=== PATIENT | female | born 1985 | race Caucasian/White ===

== ENCOUNTER 2019-05-24 16:10 | Outpatient (CLI) | payer OTHER, SELFPAY ==
--- NOTE | ~2019-05-24 | US_ITS ---
EXAMINATION: US venous doppler [facility] DATE: 05/24/2019 16:40 INDICATION: Left lower limb pain and swelling. TECHNIQUE: Grayscale ultrasound images without and with compression and Doppler ultrasound images of the left lower extremity veins were obtained. COMPARISON: None. FINDINGS: The visualized portions of left common femoral vein, profunda (deep) femoral vein, femoral vein, popl iteal vein, peroneal veins, posterior tibial veins, and greater saphenous vein outflow are patent. In the medial calf, there is a 5.6 x 0.9 cm cystic mass. IMPRESSION: 1. No deep venous thrombosis. 2. 5.6 x 0.9 cm cystic mass in medial left calf, likely a hematoma. Reviewed, dictated and finalized at location A. [employer]
== END 2019-05-24 16:11 | disposition home or self-care (01) ==
PROVIDERS: PCP Internal Medicine; Visit Provider Internal Medicine
DX: S89.92XA Unspecified injury of left lower leg, initial encounter (principal); M79.89 Other specified soft tissue disorders; M79.662 Pain in left lower leg
CPT/HCPCS: 93971

== ENCOUNTER 2022-03-23 10:17 | Outpatient (CLI) | payer OTHER, SELFPAY ==
[2022-03-23 11:19] LABS: Influenza A QL RT-PCR Positive (Negative); Influenza B QL RT-PCR Negative (Negative); RSV RNA, RT-PCR Negative (Negative); SARS-CoV-2 RNA PCR Negative (Negative)
== END 2022-03-23 10:18 | disposition home or self-care (01) ==
LOC: CHSLAB 10:21
PROVIDERS: PCP Internal Medicine; Visit Provider Internal Medicine
DX: R05.9 Cough, unspecified (principal); Z20.822 Contact with and (suspected) exposure to COVID-19
CPT/HCPCS: 87637

== ENCOUNTER 2022-09-29 22:57 | Emergency (ER) | payer OTHER, SELFPAY ==
--- NOTE | ~2022-09-29 | CT_ITS ---
Clinical Indication: Chest pain CT Scan of the Chest with Contrast: Technique: Contiguous sections were acquired throughout the chest after intravenous administration of 100 cc of Omnipaque 350. Dose reduction technique was used on this scan by utilizing automated expos ure control and iterative reconstruction technique. The dose-length product (DLP) was 317.11 mGy-cm. Findings: There is no evidence of any significant mediastinal, hilar or axillary lymphadenopathy. There is no f illing defect in the pulmonary arterial tree to suggest pulmonary embolus. There is no evidence of ao rtic dissection or aneurysm. There is no evidence of pleural or pericardial effusion. The lungs are clear. No pulmonary nodules or infiltrates are noted. Images through the upper abdomen reveal no abnormalities. Impression: No evidence of pulmonary embolus, aortic dissection, or aortic aneurysm. Clear lungs. Reviewed, dictated and finalized at [facility]. Impression: No evidence of pulmonary embolus, aortic dissection, or aortic aneurysm. Clear lungs.
--- NOTE | ~2022-09-29 | XR_ITS ---
Portable chest x-ray Comparison: 11/03/2017 Clinical History: Chest pain Findings: Lungs are clear, without focal consolidation or pleural effusion. Cardiomediastinal silho uette is stable. Bones and soft tissues are unremarkable. Impression: Normal chest. Reviewed, dictated and finalized at location . Impression: Normal chest.
[2022-09-29 23:02] VITALS: BP 126/95; PULSE 66; RESP 15; TEMP 37.1; O2SAT 100
--- NOTE | 2022-09-29 23:08 | ECG_ITS ---
Measurements Intervals [place] Rate: 55 P: 64 OR: 164 QRS: 59 QRSD: 93 T: 38 QT: 432 QTc: 415 Interpretive Statements SINUS BRADYCARDIA NO PREVIOUS ECG AVAILABLE FOR COMPARISON Electronically Signed On 09-30-2022 13:43:54 CDT by Nikki Becker M.D.
--- NOTE | 2022-09-29 23:09 | ED.CHESTPAIN ---
HPI - Chest Pain General Chief Complaint: Chest Pain Stated Complaint: Chest Pain Time Seen by Provider: 09/29/22 23:07 History of Present Illness HPI narrative: Pt presents with left sided chest pain radiating down her left arm for about 5.5 hrs constantly. Pt denies precipitating or relieving factors. Pt denies SOB. Pt denies any injury or new activity where she may have pulled something. Pt had some numbness in the left side of her face that lasted about two hrs. Related Data Home Medications Medication Instructions Recorded Confirmed No Home Medications 09/29/22 09/29/22 Allergies Allergy/AdvReac Type Severity Reaction Status Date / Time No Known Allergies Allergy Unverified 04/12/16 14:30 Review of Systems Review of Systems: All systems reviewed & are unremarkable except as noted in HPI and below PMFSH Family History Family History (Updated 07/15/16 @ 09:48 by DOCTOR UNKNOWN) Mother Family history of cardiac disorder Father Family history of lung cancer Sibling Family history of malignant neoplasm of thyroid Other Family history of malignant neoplasm Social History Social History Smoking status: Never smoker Alcohol intake: current Exam Const: General: healthy appearing Nutritional Appearance: well nourished Orientation/consciousness: patient oriented x3 Limitations: no limitations Eyes: Conjunctivae: conjunctivae normal Pupils: Equal, round and reactive pupils present EOM: EOMs intact bilaterally Neck: Neck: normal visual inspection and no lymphadenopathy Chest: Chest palpation & inspection: normal inspection of the chest Resp: Effort & Inspection: normal respiratory effort Auscultation: clear to auscultation bilaterally Cardio: Rate: regular rate Rhythm: regular rhythm GI: GI Palp: Yes Soft to palpation Auscultation: normal bowel sounds Skin: General skin exam: normal color Neuro: General: patient oriented x3, moves all extremities, no meningeal signs, no focal motor deficits and CN's II-XI intact bilaterally Cranial nerves: Yes Nystagmus not present Speech: normal speech Gait exam (Neuro): Normal gait present Extrem: General: normal to inspection and no clubbing, cyanosis or edema Psych: Mental Status: mental status grossly normal Affect: normal affect Attitude: cooperative Course Vital Signs Vital signs: Vital Signs Temperature 98.7 F 09/29/22 23:02 Pulse Rate 66 09/29/22 23:02 Respiratory Rate 15 09/29/22 23:02 Blood Pressure 126/95 H 09/29/22 23:02 Pulse Oximetry 100 09/29/22 23:02 Oxygen Delivery Room Air 09/29/22 23:02 Temperature 98.7 F 09/29/22 23:02 Pulse Rate 66 09/29/22 23:02 Respiratory Rate 15 09/29/22 23:02 Blood Pressure 126/95 H 09/29/22 23:02 Pulse Oximetry 100 09/29/22 23:02 Oxygen Delivery Room Air 09/29/22 23:02 MDM - Chest Pain MDM Narrative Medical decision making narrative: likey musculoskeletal as pt has no risk factors for CAD but with neuro sx could be dissection so will get ekg labs and Ct chest. ekg trop labs and CTA chest all normal.likely muscular. ok to go home on nsaids and follow up with pcp Lab Data 09/29/22 23:18 09/29/22 23:18 Labs: Lab Results 09/29/22 Range/Units 23:18 WBC 8.4 (4.8-10.8) K/mm3 RBC 4.05 L (4.20-5.40) M/mm3 Hgb 12.8 (12.0-15.0) g/dL Hct 38.4 (35.0-49.0) % MCV 94.8 (78.0-102.0) fL MCH 31.6 H (27.0-31.0) pg MCHC 33.3 (32.0-36.0) g/dL RDW 13.1 (11.6-14.4) % Plt Count 219 (150-420) K/mm3 MPV 9.0 L (9.2-11.8) fl Immature Gran % (Auto) 0.4 H (0.0-0.0) % Neut % (Auto) 45.9 L (50.0-70.0) % Lymph % (Auto) 43.9 H (18.0-42.0) % [place] % (Auto) 6.9 (2.0-11.0) % Eos % (Auto) 2.5 (1.0-6.0) % Baso % (Auto) 0.4 (0.0-1.0) % Lymph # (Auto) 3.69 (1.10-4.50) K/mm3 [place] # (Auto) 0.58 (0.10-0.90) K/mm3 Eos # (Auto) 0.21 (0.02-0.50) K/mm3 Baso # (Auto) 0.03 (0.00-0.
[2022-09-29] MEDS: MORPHINE SULFATE (*CRX) 4 MG/ML INJ IV PUSH (23:20)
[2022-09-29] MEDS: ONDANSETRON INJ 4 MG/2 ML VIAL IV PUSH (23:20)
[2022-09-29 23:21] LABS: Basophils Absolute Auto 0.03 K/mm3 (0.00-0.10); Basophils Percent Auto 0.4 % (0.0-1.0); Eosinophils Absolute Auto 0.21 K/mm3 (0.02-0.50); Eosinophils Percent Auto 2.5 % (1.0-6.0); Hematocrit 38.4 % (35.0-49.0); Hemoglobin 12.8 g/dL (12.0-15.0); Immature Granulocyte Absolute 0.03 K/mm3 (0.00-0.00); Immature Granulocyte Percent A 0.4 % (0.0-0.0); Lymphocytes Absolute Auto 3.69 K/mm3 (1.10-4.50); Lymphocytes Percent Auto 43.9 % (18.0-42.0); Mean Corpuscular HGB Conc 33.3 g/dL (32.0-36.0); Mean Corpuscular Hemoglobin 31.6 pg (27.0-31.0); Mean Corpuscular Volume 94.8 fL (78.0-102.0); Monocytes Absolute Auto 0.58 K/mm3 (0.10-0.90); Monocytes Percent Auto 6.9 % (2.0-11.0); Neutrophils Absolute Auto 3.9 K/mm3 (1.7-7.2); Neutrophils Percent Auto 45.9 % (50.0-70.0); Platelet Count Result 219 K/mm3 (150-420); Red Blood Count 4.05 M/mm3 (4.20-5.40); Red Cell Distribution Width 13.1 % (11.6-14.4); White Blood Count 8.4 K/mm3 (4.8-10.8)
[2022-09-29] MEDS: ASPIRIN 81 MG CHEWABLE TABLET 243 MG PO (23:22)
[2022-09-29 23:32] LABS: SPREG INTERNAL CONTROL Positive; Serum Qual hCG Negative
[2022-09-29 23:35] LABS: Partial Thromboplastin Time 26.1 SEC (23.90-30.70); Prothrombin Time 10.7 Seconds (9.50-12.10)
[2022-09-29 23:40] LABS: Alanine Aminotransferase 27 U/L (14-59); Albumin Level 3.6 g/dL (3.4-5.0); Alkaline Phosphatase 58 U/L (46-116); Anion Gap 8 mmol/L (8-16); Aspartate Amino Transferase 20 U/L (15-37); Bilirubin,Total 0.3 mg/dL (0.00-1.00); Blood Urea Nitrogen 19 mg/dL (7-18); Calcium 8.7 mg/dL (8.5-10.1); Carbon Dioxide 27 mmol/L (21-32); Chloride 103 mmol/L (98-108); Estimated CRCL calculation 70 ml/min; Estimated Glomerular Filt Rate > 60; Glucose 92 mg/dL (70-99); Osmolality Calculated 288 mOsm/kg (285-295); Potassium 3.6 mmol/L (3.5-5.1); Sodium 138 mmol/L (136-145); Total Protein 7.1 g/dL (6.4-8.2); Troponin I 6.9 ng/L (0.00-60.4)
[2022-09-30 01:00] VITALS: BP 107/77; PULSE 62; RESP 14; TEMP 37; O2SAT 97
== END 2022-09-30 01:02 | disposition home or self-care (01) ==
LOC: CHSED 09-30 00:49
PROVIDERS: Emergency Provider Emergency Medicine; PCP Internal Medicine
DX: R07.89 Other chest pain (principal)
CPT/HCPCS: 36415; 71045; 71275; 80053; 84484; 84703; 85025; 85610; 85730; 93005; 96374; 96375; 99284; A9270; J2270; J2405; Q9967

== ENCOUNTER 2023-11-08 14:42 | Outpatient (CLI) | payer OTHER, SELFPAY | END 2023-11-08 14:43 | disposition home or self-care (01) | PROVIDERS: PCP Internal Medicine; Visit Provider Specialist | DX: D22.5 Melanocytic nevi of trunk (principal) | CPT/HCPCS: 88305 ==

== ENCOUNTER 2024-03-01 16:40 | Outpatient (CLI) | payer OTHER, SELFPAY ==
--- NOTE | ~2024-03-01 | CT_ITS ---
EXAMINATION: CT soft tissue neck w con DATE: 03/01/2024 17:50 INDICATION: Peritonsillar abscess. TECHNIQUE: Computed tomography (CT) of the neck was performed with 75 mL Omnipaque-350 intravenous co ntrast. Automated exposure control and iterative reconstruction technique were employed. The dose-anthony gth product was 438.18 mGy-cm. COMPARISON: None FINDINGS: The pharynx and larynx are unremarkable. There are no pathologically enlarged lymph nodes. The cervical carotid arteries are normal. There is mild cervical spondylosis. IMPRESSION: 1. No abscess. Reviewed, dictated and finalized at location A. R SCRUBBER IMPRESSION: 1. No abscess.
== END 2024-03-01 16:41 | disposition home or self-care (01) ==
PROVIDERS: PCP Internal Medicine; Visit Provider Internal Medicine
DX: R07.0 Pain in throat (principal)
CPT/HCPCS: 70491; Q9967

== ENCOUNTER 2024-03-19 15:22 | Emergency (ER) | payer OTHER, SELFPAY ==
[2024-03-19 15:22] VITALS: BP 154/103; PULSE 91; RESP 16; TEMP 37.2; O2SAT 97
[2024-03-19 15:25] VITALS: O2SAT 98
--- NOTE | 2024-03-19 15:32 | ED_ITS ---
HPI - General Adult General Chief complaint: Upper Respiratory Infection Stated complaint: sore throat Time Seen by Provider: 03/19/24 15:31 Source: patient Mode of arrival: ambulatory Limitations: no limitations History of Present Illness HPI narrative: 38 years old white female came to the ED by private car with her complaining of intermittent left side sore throat, sharp, stabbing since December 20 2023. Patient tested positive at that time for strep throat and got better after a course of antibiotic, symptoms back again, tested negative for viral infection and strep throat but was given 10 days a course of antibiotic with significant improvement during the antibiotic intake and symptom came back immediately after the antibiotic over. Patient had another 2 courses of antibiotic for the same problem with negative workup and got better during antibiotic intake and symptom come back immediately after finishing the antibiotic. Last time patient was feeling having no sore throat during the Thanksgiving time. And her symptoms started again, suddenly got worse prior to arrival to the emergency room, could not talk, lost her voice, which got better on arrival to the ED. patient works at the [employer]. She denies any fever, chills, nausea, vomiting, trouble breathing or swallowing or chest pain or headache. Related Data Home Medications Medication Instructions Recorded Confirmed No Home Medications 09/29/22 03/19/24 Allergies Allergy/AdvReac Type Severity Reaction Status Date / Time No Known Allergies Allergy Unverified 04/12/16 14:30 Review of Systems Review of Systems: All systems reviewed & are unremarkable except as noted in HPI and below PMFSH Family History Family History Mother Family history of cardiac disorder Father Family history of lung cancer Sibling Family history of malignant neoplasm of thyroid Other Family history of malignant neoplasm Social History Social History Smoking status: Never smoker Alcohol intake: current Exam Narrative: General appearance: Well-developed, well-nourished Skin: Normal color Head: Normocephalic, nontraumatic Eyes: Clear conjunctiva ENT: Oropharynx Erythema, no lymphadenopathy Neck: Supple, nontender Chest and respiratory: Airway patent, no respiratory distress, no accessory muscle use Heart: Regular rate/rhythm Abdomen: Soft, nontender, no organomegaly, quiet bowel sounds Vascular: Normal peripheral pulses, normal capillary refill. Musculoskeletal: Normal range of motion, nontender back Neurologic: Alert and oriented ?3, [employer] is normal as tested, no gross motor deficit Course Consultations Consultation #1: DR MERCADO PATIENT WILL RECEIVE A PHONE CALL FROM HIS OFFICE IN THE MORNING FOR ENT APPOINTMENT Date: 03/19/24 Time: 16:20 Vital Signs Vital signs: Vital Signs Temperature 37.2 C 03/19/24 15:22 Pulse Rate 91 03/19/24 15:22 Respiratory Rate 16 03/19/24 15:22 Blood Pressure 154/103 H 03/19/24 15:22 Pulse Oximetry 97 03/19/24 15:22 Oxygen Delivery Room Air 03/19/24 15:22 Temperature 37.2 C 03/19/24 15:22 Pulse Rate 85 03/19/24 15:51 Respiratory Rate 18 03/19/24 15:51 Blood Pressure 126/82 03/19/24 15:51 Pulse Oximetry 98 03/19/24 15:51 Oxygen Delivery Room Air 03/19/24 15:51 Medical Decision Making MDM Narrative Medical decision making narrative: patient presents with sore throat mainly on the left side since December 19/2024, intermittent. Vital signs are stable Physical examination showing slight oropharyngeal erythema without lymphadenopathy Differential diagnosis include viral pharyngitis, strep throat, mono, stress like symptoms. Blood workup today includes CBC, CMP, COVID, flu, RSV, strep throat, mono showed NO SIGNIFICANT ABNORMALITIES THE PT WAS DISCHARGED TO HOME.THE PT,S CONDITION UPON DISCHARGE WAS FAIR,EDUCATION WAS PROVIDED TO THE PT IN REFERENCE TO THE FINAL IMPRESSION, DISCHARGE STUDY RESULTS,TREATMENT,PROGNOSIS AND NEED FOR FOLLOW UP . Differential Diagnosis Differential Diagnosis: as above Vital Signs Vital Signs: Vital Signs Temperature 37.2 C 03/19/24 15:22 Pulse Rate 91 03/19/24 15:22 Respiratory Rate 16 03/19/24 15:22 Blood Pressure 154/103 H 03/19/24 15:22 Pulse Oximetry 97 03/19/24 15:22 Oxygen Delivery Room Air 03/19/24 15:22 Temperature 37.2 C 03/19/24 15:22 Pulse Rate 85 03/19/24 15:51 Respiratory Rate 18 03/19/24 15:51 Blood Pressure 126/82 03/19/24 15:51 Pulse Oximetry 98 03/19/24 15:51 Oxygen Delivery Room Air 03/19/24 15:51 Lab Data 12/09/24 16:10 03/19/24 16:10 Labs: Lab Results 03/19/24 03/19/24 Range/Units 15:56 16:10 WBC 6.3 (4.8-10.8) K/mm3 RBC 4.23 (4.20-5.40) M/mm3 Hgb 13.3 (12.0-15.0) g/dL Hct 38.9 (35.0-49.0) % MCV 92.0 (78.0-102.0) fL MCH 31.4 H (27.0-31.0) pg MCHC 34.2 (32-36) g/dL RDW 12.5 (11.6-14.4) % Plt Count 196 (150-420) K/mm3 MPV 8.6 L (9.2-11.8) fl Immature Gran % (Auto) 0.5 H (0.0-0.0) % Neut % (Auto) 72.7 H (50.0-70.0) % Lymph % (Auto) 17.7 L (18.0-42.0) % [place] % (Auto) 7.0 (2.0-11.0) % Eos % (Auto) 1.8 (1.0-6.0) % Baso % (Auto) 0.3 (0.0-1.0) % Lymph # (Auto) 1.11 (1.10-4.50) K/mm3 [place] # (Auto) 0.44 (0.10-0.90) K/mm3 Eos # (Auto) 0.11 (0.02-0.50) K/mm3 Baso # (Auto) 0.02 (0.00-0.10) K/mm3 Abs Immat Gran (auto) 0.03 H (0.00-0.00) K/mm3 Absolute Neuts (auto) 4.57 (1.70-7.20) K/mm3 Absolute Nucleated RBC 0.00 (0.00-0.00) K/mm3 Nucleated RBC % 0.0 (0-0.0) % Sodium 139 (136-145) mmol/L Potassium 4.3 (3.5-5.1) mmol/L Chloride 103 (98-108) mmol/L Carbon Dioxide 29 (21-32) mmol/L Anion Gap 7 (4-12) mmol/L BUN 19 H (7-18) mg/dL Creatinine 0.91 (0.55-1.02) mg/dL Estim Creat Clear Calc 80 ml/min Estimated GFR > 60 (59 - ) Glucose 91 (70-99) mg/dL Calculated Osmolality 290 (285-295) mOsm/kg Calcium 9.3 (8.5-10.1) mg/dL Total Bilirubin 0.3 (0.00-1.00) mg/dL AST 18 (15-37) U/L ALT 34 (14-59) U/L Alkaline Phosphatase 77 (46-116) U/L Total Protein 7.5 (6.4-8.2) g/dL Albumin 3.9 (3.4-5.0) g/dL Monoscreen Negative (Negative) Influenza A (RT-PCR) Negative (Negative) Influenza B (RT-PCR) Negative (Negative) RSV (RT-PCR) Negative (Negative) SARS-CoV-2 RNA (RT-PCR) Negative (Negative) Group A Strep (PCR) Not detected (Negative) Critical Care Time Critical Care Time Critical Care Time: No Discharge Plan Discharge Clinical Impression: Sore throat Patient Disposition: Home, Self-Care Condition: Stable Instructions: Pharyngitis (ED) Additional Instructions: RETURN IF SYMPTOMS ARE WORSENING , CALL YOUR FAMILY PHYSICIAN FOR APPOINTMENT, TAKE TYLENOL 650 EVERY 6 HOURS NEEDED, IBUPROFEN 600 EVERY 6 HOURS NEEDED FOR ACHES AND PAIN, CONTINUE HOME MEDICATIONS. Prescriptions: No Action No Home Medications Follow-up/Referrals: Earl Mercado MD [Primary Care Provider] - Stand Alone Forms: Work/School Release IP
--- NOTE | 2024-03-19 15:33 | PC.NURSE ---
Discussed pt sxs and continuous throat pain w/ ERP Dr Artis, he would like to speak w/ Dr Mercado, pts PMD since labs and testing has been done several times / the office. Call placed to Dr Mercado to speak w/ Dr Artis
[2024-03-19 15:51] VITALS: BP 126/82; PULSE 85; RESP 18; O2SAT 98
[2024-03-19] MEDS: IBUPROFEN 600 MG TABLET PO (16:12)
[2024-03-19] MEDS: HYDROcodone/acetaminophen (*CRX) 5-325 MG TABLET 1 TAB PO (16:13)
[2024-03-19 16:14] LABS: Basophils Absolute Auto 0.02 K/mm3 (0.00-0.10); Basophils Percent Auto 0.3 % (0.0-1.0); Eosinophils Absolute Auto 0.11 K/mm3 (0.02-0.50); Eosinophils Percent Auto 1.8 % (1.0-6.0); Hematocrit 38.9 % (35.0-49.0); Hemoglobin 13.3 g/dL (12.0-15.0); Immature Granulocyte Absolute 0.03 K/mm3 (0.00-0.00); Immature Granulocyte Percent A 0.5 % (0.0-0.0); Lymphocytes Absolute Auto 1.11 K/mm3 (1.10-4.50); Lymphocytes Percent Auto 17.7 % (18.0-42.0); Mean Corpuscular HGB Conc 34.2 g/dL (32-36); Mean Corpuscular Hemoglobin 31.4 pg (27.0-31.0); Mean Platelet Volume 8.6 fl (9.2-11.8); Monocytes Absolute Auto 0.44 K/mm3 (0.10-0.90); Neutrophils Absolute Auto 4.57 K/mm3 (1.70-7.20); Neutrophils Percent Auto 72.7 % (50.0-70.0); Platelet Count Result 196 K/mm3 (150-420); Red Blood Count 4.23 M/mm3 (4.20-5.40); Red Cell Distribution Width 12.5 % (11.6-14.4); White Blood Count 6.3 K/mm3 (4.8-10.8)
[2024-03-19 16:20] LABS: Monoscreen Negative (Negative); Negative Monotest Control Negative (Negative); Positive Monotest Control Positive (Positive)
[2024-03-19 16:27] LABS: Strep Group A RT-PCR NOT DETECTED (Negative)
[2024-03-19 16:29] LABS: Alanine Aminotransferase 34 U/L (14-59); Albumin Level 3.9 g/dL (3.4-5.0); Alkaline Phosphatase 77 U/L (46-116); Anion Gap 7 mmol/L (4-12); Aspartate Amino Transferase 18 U/L (15-37); Bilirubin,Total 0.3 mg/dL (0.00-1.00); Blood Urea Nitrogen 19 mg/dL (7-18); Calcium 9.3 mg/dL (8.5-10.1); Carbon Dioxide 29 mmol/L (21-32); Chloride 103 mmol/L (98-108); Estimated CRCL calculation 80 ml/min; Estimated Glomerular Filt Rate > 60; Glucose 91 mg/dL (70-99); Osmolality Calculated 290 mOsm/kg (285-295); Potassium 4.3 mmol/L (3.5-5.1); Sodium 139 mmol/L (136-145); Total Protein 7.5 g/dL (6.4-8.2)
[2024-03-19 16:32] LABS: SARS-CoV-2 RNA PCR Negative (Negative)
[2024-03-19 16:47] LABS: Influenza A QL RT-PCR Negative (Negative); Influenza B QL RT-PCR Negative (Negative); RSV RNA, RT-PCR Negative (Negative)
[2024-03-19 17:09] VITALS: BP 127/86; PULSE 84; RESP 20; TEMP 36.6; O2SAT 99
== END 2024-03-19 17:09 | disposition home or self-care (01) ==
PROVIDERS: Emergency Provider Emergency Medicine; PCP Internal Medicine
DX: J02.9 Acute pharyngitis, unspecified (principal); Z20.822 Contact with and (suspected) exposure to COVID-19
CPT/HCPCS: 36415; 80053; 85025; 86308; 87637; 87651; 99283; A9270

== ENCOUNTER 2024-04-18 15:45 | Outpatient (CLI) | payer OTHER, SELFPAY | END 2024-04-18 15:46 | disposition home or self-care (01) | LOC: CHSCARD 15:47 | PROVIDERS: PCP Internal Medicine; Visit Provider Internal Medicine | DX: R00.2 Palpitations (principal) | CPT/HCPCS: 93270 ==